=== PATIENT | female | born 1940 | race Caucasian/White ===

== ENCOUNTER 2023-04-19 08:30 | Outpatient (RCR) | payer MEDICARE, SELFPAY | END 2023-07-31 11:01 | disposition home or self-care (01) | PROVIDERS: PCP Pediatrics; Visit Provider Pediatrics | DX: M17.11 Unilateral primary osteoarthritis, right knee (principal); M25.561 Pain in right knee; R29.6 Repeated falls; R53.1 Weakness; R26.9 Unspecified abnormalities of gait and mobility; Z51.89 Encounter for other specified aftercare | CPT/HCPCS: 97110; 97112; 97161 ==